=== PATIENT | female | born 1980 | race Caucasian/White ===

== ENCOUNTER → 2021-05-08 13:29 | Outpatient (CLI) | payer OTHER, SELFPAY ==
--- NOTE | ~2021-05-08 | MM_ITS ---
EXAMINATION: MM screening heri BI w rizwan HISTORY: Screening TECHNIQUE: Craniocaudal and mediolateral oblique 3-D tomosynthesis images were obtained and synthetic 2-D images were generated. CAD analysis was submitted and interpreted. COMPARISON: No prior mammogram is available for comparison at this institution. BREAST PARENCHYMAL COMPOSITION: There are scattered areas of fibroglandular density. FINDINGS: There is no evidence of suspicious mass, calcification, or architectural distortion to sugg est malignancy in either breast. There has been no suspicious interval change. IMPRESSION: 1. No mammographic evidence of malignancy. 2. Recommend routine screening mammography in one year. BI-RADS Category 1: Negative Reviewed, dictated and finalized at location A.
== END ==
PROVIDERS: Visit Provider Obstetrics & Gynecology Gynecology
DX: Z12.31 Encounter for screening mammogram for malignant neoplasm of breast (principal)
CPT/HCPCS: 77063; 77067

== ENCOUNTER 2022-11-30 13:33 | Emergency (ER) | payer OTHER, SELFPAY ==
--- NOTE | ~2022-11-30 | XR_ITS ---
Left ankle Technique: AP, oblique, and lateral views were obtained. Clinical History: Injury Findings: Transverse, nondisplaced fracture through the base of fifth metatarsal noted. No other frac ture or dislocation. Ankle mortise and other visualized joint spaces are preserved. Diffuse soft tiss ue swelling about the ankle noted. Impression: Transverse, nondisplaced, traumatic fracture of the base the fifth metatarsal. Diffuse soft tissue swelling about the ankle. Reviewed, dictated and finalized at location . NT SERVICES VICE PRESIDENT Impression: Transverse, nondisplaced, traumatic fracture of the base the fifth metatarsal. Diffuse soft tissue swelling about the ankle.
--- NOTE | ~2022-11-30 | XR_ITS ---
Left foot Technique: AP, oblique, and lateral views were obtained. Clinical History: Injury Findings: Traumatic, transverse, nondisplaced fracture of the base of the fifth metatarsal present. N o other fracture or dislocation seen. Joint spaces are preserved without erosive or degenerative girard ge. Soft tissues are unremarkable. Impression: Transverse, nondisplaced fracture of the base of the fifth metatarsal. Reviewed, dictated and finalized at location M. AGE SUPERVISOR Impression: Transverse, nondisplaced fracture of the base of the fifth metatarsal.
[2022-11-30 13:39] VITALS: BP 155/106; PULSE 83; RESP 16; TEMP 37.2; O2SAT 100
--- NOTE | 2022-11-30 14:05 | ED.LOWEXIN ---
HPI - Extremity Injury (Lower) General Chief Complaint: Extremity Injury, Lower Stated Complaint: Left ankle injury Time Seen by Provider: 11/30/22 14:00 Source: patient, family, RN notes reviewed and old records reviewed Mode of arrival: wheelchair Limitations: no limitations History of Present Illness HPI Narrative: 42-year-old female who presents to [facility] with complaints of left ankle and lateral foot pain after falling down last 3 concrete steps last night at school while attending a basketball game rolling her left foot with injury to lateral ankle region and left lateral foot. Patient has been applying ice and taking Ibuprofen for her left foot and ankle discomfort. Patient has strong pulse to her left foot with noted swelling and bruising to lateral left foot and ankle region. MD complaint: ankle injury (Left) and foot injury (Left) Onset (ago): day(s) (1) Injury: Left: ankle and foot Type of Injury: eversion Severity scale (1-10): 7 Treatments prior to arrival: cold therapy and NSAIDS Related Data Home Medications Medication Instructions Recorded Confirmed levothyroxine 50 mcg tablet 50 mcg PO DAILY 11/30/22 11/30/22 Allergies Allergy/AdvReac Type Severity Reaction Status Date / Time No Known Allergies Allergy Mild Verified 11/30/22 13:47 Review of Systems Review of Systems: CONSTITUTIONAL: Denies fever, chills, or sweats. EYES: Denies visual changes, redness, or discharge. ENT: Denies rhinorrhea, congestion, sore throat, or otalgia. CARDIOVASCULAR: Denies chest pain, palpitations, or edema. RESPIRATORY: Denies cough or dyspnea. GASTROINTESTINAL: Denies abdominal pain, nausea, vomiting, or diarrhea. GENITOURINARY: Denies dysuria or hematuria. SKIN: Denies rash or itching. MUSCULOSKELETAL: Denies back pain,positive for pain to lateral left ankle and lateral left foot from injury, or myalgia. NEUROLOGIC: Denies headache, numbness, or weakness. PSYCHIATRIC: Denies anxiety or depression. All systems reviewed & are unremarkable except as noted in HPI and below PMFSH Past Medical History Medical History (Updated 12/01/22 @ 08:30 by Viviana Mims NP) Hypothyroidism MVP (mitral valve prolapse) Social History Social History (Updated 12/01/22 @ 08:28 by Viviana Mims NP) Smoking status: Never smoker Substance use type: does not use Gender identity (if verbalized by the patient): Female Comments At time of signature, agree with nursing past medical, surgical, social and family history. There is no relevant family history pertinent to the presenting complaint Exam Narrative: GENERAL: Well-appearing, well-nourished, and in no acute distress. HEAD: Normocephalic, atraumatic. EYES: PERRLA and EOMI. ENT: Nares clear, no rhinorrhea or epistaxis. Mucous membranes moist.TM's normal with good light reflex, throat pink with no lesions or exudates NECK: Supple.with no lymphadenopathy CHEST: Clear to auscultation. No respiratory distress.SAO2 100% on room air HEART: Regular rate and rhythm. No murmur heard. Normal peripheral pulses.swelling and bruising to left foot ABDOMEN: Soft, nontender, nondistended, normal active bowel sounds. EXTREMITIES: Normal range of motion. Edema and ecchymosis present left lateral foot and ankle, decreased ROM left foot and ankle due to pain, strong pulses present left foot with swelling, brisk capillary refill. SKIN: Warm, dry, no rash. NEURO: No focal deficits. Alert and oriented x3. Course Course Emergency Course: Patient is aware of diagnosis, understands and agrees to treatment plan.? Anticipatory guidance given.? Patient agrees to follow-up as directed and is aware of reasons to seek care at the emergency department. Portions of this record may have been created with voice recognition software Level of Care: Express Care Visit Vital Signs Vital signs: Vital Signs Temperature 37.2 C 11/30/22 13:39 Pulse Rate 83 11/30/22 13:39 Respiratory Rate 16 11/30
[2022-11-30 14:08] VITALS: BP 148/86
== END 2022-11-30 14:55 | disposition home or self-care (01) ==
PROVIDERS: Emergency Provider Registered Nurse; PCP Family Medicine
DX: S92.355A Nondisplaced fracture of fifth metatarsal bone, left foot, initial encounter for closed fracture (principal); E03.9 Hypothyroidism, unspecified; W10.9XXA Fall (on) (from) unspecified stairs and steps, initial encounter; Y92.219 Unspecified school as the place of occurrence of the external cause
CPT/HCPCS: 29515; 73610; 73630; 99214; G0463

== ENCOUNTER 2022-12-03 15:06 | Outpatient (CLI) | payer OTHER, SELFPAY ==
--- NOTE | ~2022-12-03 | US_ITS ---
EXAMINATION: US venous doppler [facility] DATE: 12/03/2022 15:29 INDICATION: LEFT LEG SWELLING . TECHNIQUE: Grayscale images without and with compression and Doppler images of the left lower extremi ty veins were obtained. COMPARISON: None FINDINGS: The left common femoral vein, profunda femoral vein, femoral vein, popliteal vein, peroneal vein, pos terior tibial veins, gastrocnemius vein, and greater saphenous vein are patent. IMPRESSION: 1. Patent left lower extremity veins. No evidence of deep venous thrombosis. Reviewed, dictated and finalized at location K. PROJECT ENGINEER
== END 2022-12-03 15:07 | disposition home or self-care (01) ==
PROVIDERS: PCP Family Medicine; Visit Provider Orthopaedic Surgery
DX: R60.0 Localized edema (principal)
CPT/HCPCS: 93971

== ENCOUNTER 2024-01-28 08:18 | Outpatient (CLI) | payer BC, SELFPAY ==
--- NOTE | ~2024-01-28 | US_ITS ---
Pelvic ultrasound. Clinical History: Abnormal bleeding Technique: Realtime transabdominal scanning of the pelvis was performed. Color flow Doppler and Doppl er spectral analysis were performed. Findings: The uterus is anteverted, and measures 9.3 x 4.5 x 4.9 cm. The endometrial stripe has a th ickness of 5 mm. Probable small fibroid measures 1.7 cm. The right ovary measures 2.3 x 1.9 x 2.1 cm. No significant right ovarian or adnexal mass is seen. The left ovary measures 1.9 x 1.2 x 1.7 cm. No significant left ovarian or adnexal mass is seen. Vascular flow present in both ovaries. There is no evidence of free fluid in the cul de sac. Impression: Probable small fibroid, as above. Reviewed, dictated and finalized at location . Impression: Probable small fibroid, as above.
== END 2024-01-28 08:19 ==
LOC: MICIMG 08:20
PROVIDERS: PCP Obstetrics & Gynecology Gynecology; Visit Provider Obstetrics & Gynecology Gynecology
DX: N93.8 Other specified abnormal uterine and vaginal bleeding (principal)
CPT/HCPCS: 76856

== ENCOUNTER 2024-02-17 00:37 | Day surgery (SDC) | payer BC, SELFPAY ==
[2024-02-05 15:31] VITALS: BMI 40.2
--- NOTE | 2024-02-05 15:36 | PC.NURSE ---
Report to the Outpatient Waiting Room, entrance under the green pavilion located off [facility], at time 0815 on date 02/17/24. Planned Procedure Time: 1015. Time changes happen often and if your time is changed the preop area will call you the afternoon before. - You and your visitor will be asked to self-screen and do not enter if you have any COVID symptoms. - A mask is optional within the hospital at this time. Patients may have clear liquids (water, carbonated beverages, clear teas, apple juice) until 3 hours prior to surgery with a maximum of 20 ounces. - No food from midnight until time of surgery Take the following medications with a SIP of water the morning of surgery: LEVOTHYROXINE DO NOT STOP ANY OF YOUR OTHER PRESCRIPTION MEDICATIONS PRIOR TO SURGERY ?EXCEPT THE FOLLOWING Medications to discontinue per physician: N/A Date to take last dose: N/A Please no make-up, nail welsh, hairspray, perfume, deodorant, or body powder the day of surgery. No jewelry (including any body piercings) or valuables the day of surgery, leave them at home. Please take a shower or bath the night before, or the morning of, surgery with an antibacterial soap. Wear comfortable, loose fitting clothing. - Jewelry must be removed prior to entering the operating room. Rings and piercings that are not removed may be cut off. - The hospital will not accept responsibility for valuables. - Please leave all valuables, including medications, at home the day of surgery. If you are going home after surgery, a licensed otr company driver must drive you home. - NO public transportation without another adult if you receive anesthesia. - We recommend that an adult stay with you for 24 hours following discharge. - We also recommend that you do not drive, make important decision, drink alcoholic beverages, or take any drugs that were not prescribed by your health care provider for at least 24 hours after your discharge time. Follow any additional instructions given to you from your surgeon. If you or anyone in your household have experienced Covid symptoms in the past week, please notify your surgeon or the nurse liaison at the phone number below for possible testing. Telephone instructions given to PT - FEBRUARY and asked if any additional questions and then verbalized understanding. Patient advised to call surgeon office or pre surgery nurse liaison [phone] if any additional questions.
--- NOTE | 2024-02-17 07:17 | WPDHPUPDATE1 ---
History and Physical Update Update Date/Time: 02/17/24 07:17 History and Physical has been reviewed, including an updated exam of the patient. There are NO changes in the patient's condition. Risks, benefits, and alternatives have been discussed and questions answered. Patient agrees to proceed with procedure.
--- NOTE | 2024-02-17 07:17 | PM.HPGS ---
History of Present Illness History of Present Illness Consent: Risks, benefits, and alternatives have been discussed and questions answered. Patient agrees to proceed with procedure. Chief complaint: Menorrhagia Narrative: Monae Francois is a 43 year old female with heavy cycles for past 10 months. Ultrasound appears normal. It was recommended to D&C hysteroscopy for further evaluation. Risks of infection, bleeding, perforation, and possible pathology are discussed. Patient voices understanding and agrees to proceed. Review of Systems Review of Systems: not repeated day of surgery; patient states no changes in status PMFSH Past Medical History Medical History (Updated 02/17/24 @ 07:20 by Christine Turner MD) Hypothyroidism MVP (mitral valve prolapse) (normal spontaneous vaginal delivery) x1 Social History Social History (Updated 12/01/22 @ 08:28 by Viviana Mims NP) Smoking packs per day: 0.5 Smoking cigarettes per day: 10.0 Years smoked: 10 Smoking pack-years: 5.00 Smoking status: Former smoker Tobacco type: cigarettes Smoking end date: 11/11/09 Alcohol intake: current Alcohol use details: VERY RARE Substance use: never Substance use type: does not use Living arrangements: with family Gender identity (if verbalized by the patient): Female Spiritual care concerns: No Meds Home Medications and Allergies Home Medications Medication Instructions Recorded Confirmed Type levothyroxine 125 mcg tablet 125 mcg PO DAILY 02/05/24 02/05/24 History Allergies Allergy/AdvReac Type Severity Reaction Status Date / Time No Known Allergies Allergy Mild Verified 02/05/24 15:31 Exam Const: General: healthy appearing and alert Orientation/consciousness: patient oriented x3 Resp: Effort & Inspection: normal respiratory effort Auscultation: clear to auscultation bilaterally Cardio: Rate: regular rate Rhythm: regular rhythm GI: GI Palp: Yes Soft to palpation, No Tenderness to palpation present (GI) and No Palpable mass present : External Female Exam: normal external appearance Speculum Exam - Vagina: normal appearance of the vagina and normal vaginal discharge Speculum Exam - Cervix: normal appearance of the cervix Bimanual exam- vagina & uterus: uterine size normal, consistency normal and other ( 1st degree cystocele and second-degree rectocele) Bimanual Exam- Adnexa, other: normal adnexae and No adnexal tenderness Neuro: General: patient oriented x3 Assessment and Plan Assessment and plan (1) Menorrhagia: Code(s): N92.0 - Excessive and frequent menstruation with regular cycle Status: Acute Assessment and Plan: plan to proceed with D&C hysteroscopy
[2024-02-17 07:30] VITALS: BP 124/68; PULSE 79; RESP 14; TEMP 36.6; O2SAT 97
[2024-02-17] MEDS: LACTATED RINGERS 1,000 ML 30 ML IV CONT (07:30)
--- NOTE | 2024-02-17 08:11 | P.PNAN_ITS ---
Anes - Initial Pre Proc Eval Procedure: Operation Date: 02/17/24 09:00 Proposed Procedures p Hysteroscopy Dilation and Curettage - Christine Turner MD Date/Time: 02/17/24 08:11 Surgeon: Christine Turner MD Pre Op Diagnosis: Menorrhagia Patient Data Age: 43 Gender: F Height: 1.57 m Weight: 99.8 kg Allergies Allergy/AdvReac Type Severity Reaction Status Date / Time No Known Allergies Allergy Mild Verified 02/05/24 15:31 Home Medications Medication Instructions Recorded Confirmed Type levothyroxine 125 mcg tablet 125 mcg PO DAILY 02/05/24 02/05/24 History Patient hx anesthesia problems: none Family hx anesthesia problems: none Results Review: All pre-operative results and documents have been reviewed as part of the pre- operative evaluation. [facility] Past Medical History Medical History Hypothyroidism MVP (mitral valve prolapse) (normal spontaneous vaginal delivery) x1 Social History Social History Smoking packs per day: 0.5 Smoking cigarettes per day: 10.0 Years smoked: 10 Smoking pack-years: 5.00 Smoking status: Former smoker Tobacco type: cigarettes Smoking end date: 11/11/09 Alcohol intake: current Alcohol use details: VERY RARE Substance use: never Substance use type: does not use Living arrangements: with family Gender identity (if verbalized by the patient): Female Spiritual care concerns: No Anes - Eval Final PreProcedure Day of Procedure 02/17/24 08:11 Patient weight: morbidly obese Heart: regular rate and rhythm Lungs: clear to auscultation Airway: Mallampati scale class II Neurological: alert and oriented Last oral intake: >/= 8 hours ASA classification: III Emergent: no Anesthetic plan: proceed Anesthesia type and monitoring: general GIVS and standard monitoring Results Review: All pre-operative results and documents have been reviewed as part of the pre- operative evaluation. Informed Consent: The patient's anesthetic plan and its attendant risks and benefits were discussed with the patient/family/POA. Questions were solicited and answers provided to the satisfaction of the patient/family/POA.
[2024-02-17 08:40] VITALS: BP 122/69; PULSE 79; RESP 14; O2SAT 94
--- NOTE | 2024-02-17 08:42 | W.PM.PROC2 ---
Procedure Note - Detailed Date of Procedure 02/17/24 Pre-op Diagnosis Menorrhagia Post-op Diagnosis Same Procedure Performed D&C hysteroscopy Surgeon Christine Turner MD Anesthesia MAC Findings uterus sounds to 10cm and appears grossly normal Description of Procedure The patient is taken to the operating room and placed under anesthesia in the dorsal lithotomy position. She was prepped and draped in the usual sterile fashion. [place] speculum was placed in the vagina and the cervix grasped on the anterior lip with a tenaculum. The uterus is sounded to 10cm. The diagnostic hysteroscope was placed and no abnormalities were noted. Hysteroscope was removed and the cervix required dilation to a 6 Hegar. The sharp OO curette is used to curette the endometrium until a good uterine cry was noted in all areas. All instruments are removed. Sponge, needle, and instrument counts are correct per the OR staff. Patient was awakened from anesthesia taken to recovery in stable condition. Estimated Blood Loss 5 Drains No Packing No Pathology Yes ( Endometrial curettings) Complications No immediate complications Condition Stable Disposition PACU
[2024-02-17 09:00] VITALS: BP 125/74; PULSE 68; RESP 14; O2SAT 97
[2024-02-17] MEDS: ACETAMINOPHEN 500 MG TABLET 1000 MG PO (09:10)
[2024-02-17 09:25] VITALS: BP 120/75; PULSE 66; RESP 14
== END 2024-02-17 09:33 | disposition home or self-care (01) ==
PROVIDERS: Visit Provider Obstetrics & Gynecology Gynecology
PROC: 0U5B8ZZ Destruction of Endometrium, Via Natural or Artificial Opening Endoscopic (ICD-10-PCS; CPT 58563; principal; 2024-02-17 09:00)
DX: N92.0 Excessive and frequent menstruation with regular cycle (principal); E03.9 Hypothyroidism, unspecified; Z87.891 Personal history of nicotine dependence; E66.01 Morbid (severe) obesity due to excess calories
CPT/HCPCS: 58558; 88305; A9270; J1885; J2250; J2704; J3010; J7120

== ENCOUNTER 2024-04-09 15:14 | Outpatient (CLI) | payer BC, SELFPAY ==
--- NOTE | ~2024-04-09 | MM_ITS ---
EXAMINATION: MM screening heri BI w rizwan HISTORY: Screening TECHNIQUE: Craniocaudal and mediolateral oblique 3-D tomosynthesis images were obtained and synthetic 2-D images were generated. CAD analysis was submitted and interpreted. COMPARISON: 05/08/2021 BREAST PARENCHYMAL COMPOSITION: There are scattered areas of fibroglandular density. FINDINGS: There is no evidence of suspicious mass, calcification, or architectural distortion to sugg est malignancy in either breast. There has been no suspicious interval change. IMPRESSION: 1. No mammographic evidence of malignancy. 2. Recommend routine screening mammography in one year. BI-RADS Category 1: Negative Reviewed, dictated and finalized at location B.
== END 2024-04-09 15:15 ==
LOC: MICIMG 15:15
PROVIDERS: PCP Obstetrics & Gynecology Gynecology; Visit Provider Obstetrics & Gynecology Gynecology
DX: Z12.31 Encounter for screening mammogram for malignant neoplasm of breast (principal)
CPT/HCPCS: 77063; 77067

== ENCOUNTER 2024-05-04 15:04 | Outpatient (CLI) | payer BC, SELFPAY ==
--- NOTE | ~2024-05-04 | US_ITS ---
EXAMINATION: US pelvic complete DATE: 05/04/2024 15:22 INDICATION: Displacement of intrauterine contraceptive device. TECHNIQUE: Multiple transabdominal sonographic images of the pelvis were obtained. COMPARISON: Ultrasound 01/28/2024 FINDINGS: The uterus measures 9.5 x 4.2 x 5.1 cm. There is no free fluid in the pelvis. The endometrial complex measures 4 mm in thickness. There is an intrauterine device in abnormal position in the lower uterin e segment. The right ovary measures 2.3 x 1.5 x 2.2 cm. The left ovary measures 2.5 x 1.9 x 2.0 cm. T here is normal vascular flow in the ovaries. IMPRESSION: 1. Intrauterine device in abnormal position in the lower uterine segment. Reviewed, dictated and finalized at location A.
== END 2024-05-04 15:05 ==
LOC: MICIMG 15:05
PROVIDERS: PCP Nurse Practitioner; Visit Provider Nurse Practitioner
DX: T83.32XA Displacement of intrauterine contraceptive device, initial encounter (principal); Y83.8 Other surgical procedures as the cause of abnormal reaction of the patient, or of later complication, without mention of misadventure at the time of the procedure
CPT/HCPCS: 76856